=== PATIENT | male | born 1990 | race African-American/Black ===

== ENCOUNTER 2023-07-01 14:37 | Emergency (ER) | payer OTHER, SELFPAY ==
--- NOTE | 2023-07-01 14:42 | ED.ALLEREA ---
HPI - Allergic Reaction General Chief complaint: Skin/Abscess/Foreign Body Stated complaint: Allergic Reaction Time Seen by Provider: 07/01/23 14:42 Source: patient Mode of arrival: ambulatory Limitations: no limitations History of Present Illness HPI narrative: Aryan is a 33-year-old male patient presenting to the clinic today with complaints of itchy rash that started last night and has progressively gotten worse told this morning. Did take some Benadryl and states that the rash did improve some. Denies any environmental changes, new medications, foods, lotions, soaps, detergents, and shampoos. Denies any difficulty breathing, tongue swelling, difficulty swallowing, or drooling. Related Data Allergies Allergy/AdvReac Type Severity Reaction Status Date / Time No Known Allergies Allergy Verified 07/01/23 14:54 Review of Systems Review of Systems: Pertinent positives per HPI. Patient denies any fever, chills, headache, visual changes, dizziness, cough, runny nose, sore throat, shortness of breath, chest pain, palpitations, nausea, vomiting, diarrhea, constipation, abdominal pain, or any urinary issues. PMFSH Comments At the time of my signature, I reviewed and agree with the nursing past medical, surgical, social, and family history. There is no relevant family history pertinent to the patient complaint. Exam Narrative: General: Well-developed, well nourished, in no apparent distress Head: Normocephalic, atraumatic. Cardio: Regular rate and rhythm, s1 and s2 normal, no murmur appreciated. Resp: Clear to auscultation bilaterally, no rhonchi, rales, wheezing or rubs. Integumentary: [place], warm, and dry, hive-like red raised itchy rash to bilateral arms, back, and right hip Course Course Emergency Course: Portions of this record may have been created with voice recognition software. Level of Care: Express Care Visit Vital Signs Vital signs: Vital signs reviewed MDM - Allergic Reaction MDM Narrative Medical decision making narrative: At the time of visit patient is resting comfortably on the exam table. Patient appears to be nontoxic. Medications given: Dexamethasone 10 mg IM Plan: I suspect patient has urticaria. Will send in prescription for prednisone taper dose and Pepcid. Supportive measures were discussed with the patient and they voiced understanding discharge instructions and agrees to treatment plan. Return precautions reviewed Differential Diagnosis Differential diagnosis: Likely allergic reaction, contact dermatitis, adverse reaction to drug, viral enanthem and urticaria Discharge Plan Discharge Clinical Impression: Urticaria Patient Disposition: Home, Self-Care Condition: Stable Instructions: Antibiotic Form, Urticaria (ED) Additional Instructions: Dexamethasone 10 mg IM given in the clinic today Take prednisone as directed-start on July 02, 2023 Take Pepcid 40 mg p.o. daily times 10 days Avoid hot showers Avoid scratching and this can cause a secondary infection May take benadryl 25-50mg every 6 hours as needed for itching. Follow up with your PCP in 3-5 days if symptoms persist or sooner if they worsen Go to the Emergency Room if symptoms worsen- fever, rash spreading with treatment, shortness of breath, tongue swelling, drooling, or chest pain Prescriptions: New famotidine [Pepcid] 40 mg tablet 40 mg PO DAILY 10 Days Qty: 10 0RF prednisone 10 mg tablet 10 mg PO DAILY Qty: 30 0RF Rx Instructions: 60mg po daily on day 1, 40mg po daily on days 2-4, 30mg po daily on days 5-6, 20mg po daily on days 7-8, 10mg po daily on days 9-10 Follow-up/Referrals: UNKNOWN,DOCTOR [Non-Staff] - Time of Disposition: 15:00 Quality NIHSS Nursing Documentation ED NIHSS nursing documentation: reviewed/agree
[2023-07-01 14:50] VITALS: BP 153/76; PULSE 92; RESP 16; TEMP 36.6; O2SAT 100
[2023-07-01 14:54] VITALS: BP 153/76; PULSE 92; RESP 16; TEMP 36.6; O2SAT 100
[2023-07-01] MEDS: dexAMETHasone SOD PHOS INJ 10 MG/ML 1 ML VIAL IM (15:02)
== END 2023-07-01 15:23 | disposition home or self-care (01) ==
PROVIDERS: Emergency Provider Nurse Practitioner Family; PCP Student in an Organized Health Care Education/Training Program
DX: L50.9 Urticaria, unspecified (principal)
CPT/HCPCS: 96372; 99213; G0463; J1100